=== PATIENT | female | born 1990 ===

== ENCOUNTER 2018-12-24 17:23 | Emergency (ER) | payer OTHER ==
[2018-12-24 17:29] VITALS: BMI 18.3
[2018-12-24 17:33] VITALS: RESP 18; O2SAT 100
[2018-12-24] MEDS ORDERED: Sodium Chloride 0.9% 1,000 ML IV ONE (17:59)
--- NOTE | 2018-12-24 18:11 | C.PDOC ---
History Of Present Illness 28-year-old female presents to the ED for evaluation of suprapubic pressure which began around 3 to 4 days ago. Patient is currently around four weeks . She is a . She denies vaginal bleeding, vomiting, diarrhea, fever, dysuria. Time Seen by Provider: 12/24/18 17:45 Chief Complaint (Nursing): Abdominal Pain History Per: Patient History/Exam Limitations: no limitations Onset/Duration Of Symptoms: Days (3-4) Current Symptoms Are (Timing): Still Present Location Of Pain/Discomfort: Suprapubic Quality Of Discomfort: Pressure Associated Symptoms: denies: Fever, Chills, Vomiting, Diarrhea, Urinary Symptoms Additional History Per: Patient Abnormal Vaginal Bleeding: No Past Medical History Reviewed: Historical Data, Nursing Documentation, Vital Signs Vital Signs: Last Vital Signs Temp 98.4 F 12/24/18 17:29 Pulse 75 12/24/18 17:29 Resp 18 12/24/18 17:29 BP 96/57 L 12/24/18 17:29 Pulse Ox 100 12/24/18 17:29 - Medical History PMH: No Chronic Diseases Surgical History: Cholecystectomy Family History: States: Unknown Family Hx - Social History Hx Alcohol Use: No Hx Substance Use: No Review Of Systems Constitutional: Negative for: Fever, Chills Gastrointestinal: Positive for: Abdominal Pain (suprapubic pressure ). Negative for: Vomiting, Diarrhea Genitourinary: Negative for: Dysuria Physical Exam - Physical Exam Appears: Non-toxic, No Acute Distress Skin: Normal Color, Warm, Dry Head: Atraumatic, Normacephalic Eye(s): bilateral: Normal Inspection Oral Mucosa: Moist Neck: Supple Chest: Symmetrical, No Deformity, No Tenderness Cardiovascular: Rhythm Regular, No Murmur Respiratory: Normal Breath Sounds, No Rales, No Rhonchi, No Wheezing Gastrointestinal/Abdominal: Soft, Tenderness (mild, suprapubic ), No Guarding, No Rebound, No Other (McBurney's point tenderness ) Back: No CVA Tenderness Extremity: Normal ROM, Capillary Refill (less than 2 seconds ) Neurological/Psych: Oriented x3, Normal Speech, Normal Cognition ED Course And Treatment - Laboratory Results Result Diagrams: 12/24/18 18:13 12/24/18 18:13 O2 Sat by Pulse Oximetry: 100 (on RA) Pulse Ox Interpretation: Normal - CT Scan/US ultrasound Other Rad Studies (CT/US): Read By Radiologist, Radiology Report Reviewed CT/US Interpretation: History. , vaginal bleeding. Comparison. None available. Findings. Uterus. Single live intrauterine gestation. CRL equivalent to 6 wks/3 days gestation. Gestational sac diameter equivalent to 6 wks/4 days gestation. Heart rate: 122.14 bpm. Uterus measures 10.28 x 6.82 x 7.74 cm. No mass. Cervix. Long and closed measuring 3.79 cm. No cervical abnormality seen. Right Ovary. Measures 4.38 x 2.5 x 3.97 cm. No mass. Normal flow. Corpus luteal cyst measures 2.66 x 2.34 x 2.42 cm. Left Ovary. Measures 3.03 x 2.33 x 2.63 cm. No mass. Normal flow. Free Fluid. Present. Other Findings. None. Impression. 1. Single live intrauterine gestation. 2. Free fluid in the cul-de-sac. 3. Right ovarian corpus luteal cyst. Progress Note: bloodwork, urinalysis, and ultrasound oredered and reviewed. On reassessment, patient is resting comfortably, showing no signs of distress and is stable for discharge. Patient is advised to f/u with her [employer]W MEMBER within 1-2 days for further evaluation. 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 SCHEDULED RETURN TO EMERGENCY ROOM IF YOUR SYMPTOMS WORSEN SEGUIR CON EL MAANA OB / TOMB MAKER HELPER MAESTRO SEGN LO HECHO VUELVA A LA JOSELO DE EMERGENCIA SI ANAHY SNTOMAS SE GARCIA IMPLICADO Prescriptions: Multivit/Folic Acid/I [ Plus] 1 tab PO DAILY #30 tab Instructions: Symptoms Forms: [facility] (Palestinian) Print Language: VIETNAMESE - Clinical Impression Clinical Impression: Normal IUP (intrauterine ) on ultrasound, - Scribe Statement The provider has reviewed the documentation as recorded by the Scribe (Rachelle Finley) Provider Attestation: All medical record entries made by the Scribe were at my direction and personally dictated by me. I have reviewed the chart and agree that the record accurately reflects my personal performance of the history, physical exam, medical decision making, and the department course for this patient. I have also personally directed, reviewed, and agree with the discharge instructions and disposition.
[2018-12-24] MEDS ORDERED: Sodium Chloride 0.9% 1,000 ML ONE (18:14)
[2018-12-24 18:24] LABS: BASO % 0.4 % (0.0-2.0); EOS % 0.7 % (0.0-4.0); HEMOGLOBIN 11.1 g/dL (11.0-16.0); LYMPH # 1.6 K/uL (1.0-4.3); LYMPH % 27.9 % (20.0-40.0); MEAN CELL VOLUME 87.9 fL (81.0-99.0); MEAN PLATELET VOLUME 8.5 fL (7.2-11.7); MONO # 0.5 K/uL (0.0-0.8); MONO % 8.1 % (0.0-10.0); NEUT # 3.7 K/uL (1.8-7.0); NEUT % 62.9 % (50.0-75.0); NRBC % 0.1 % (0.0-2.0); RBC 3.81 Mil/uL (3.80-5.20); RED CELL DISTRIBUTION WIDTH 13.2 % (11.5-14.5); WHITE BLOOD COUNT 5.9 K/uL (4.8-10.8)
[2018-12-24 18:26] LABS: SQUAMOUS EPITHIAL 3 /hpf (0-5); URINE BILIRUBIN NEGATIVE (NEGATIVE); URINE BLOOD NEGATIVE (NEGATIVE); URINE CLARITY Clear (Clear); URINE COLOR Yellow (YELLOW); URINE GLUCOSE (UA) NORMAL (Normal); URINE LEUKOCYTE ESTERASE TRACE Leu/uL (Negative); URINE PROTEIN NEGATIVE (NEGATIVE); URINE UROBILINOGEN NORMAL mg/dL (0.2-1.0)
[2018-12-24 18:34] LABS: ALB/GLOB RATIO 1.5 (1.0-2.1); ALBUMIN 4.2 g/dL (3.5-5.0); ALT/SGPT 13 U/L (9-52); AST/SGOT 20 U/L (14-36); BLOOD UREA NITROGEN 9 mg/dL (7-17); CALCIUM 8.8 mg/dl (8.6-10.4); GFR NON-AFRICAN AMERICAN > 60
[2018-12-24 20:44] VITALS: BP 105/65; PULSE 71; TEMP 98.5
--- NOTE | 2018-12-25 17:18 | US ---
Date of service: 12/24/2018 PROCEDURE: OB Pelvic Ultrasound HISTORY: , VAGINAL BLEEDING LMP: 11/17/2018 indicating gestation of 5 weeks 2 days. COMPARISON: None available. FINDINGS: UTERUS: Gestational sac: Single intrauterine gestation. Heart rate: 122 bpm. age (Ultrasound estimated): 6 weeks 3 days based on mean CRL measurement. Jami-gestational hemorrhage: None. Date of delivery (Ultrasound estimated) : 08/15/2019. Uterus measures 10.3 x 6.8 x 7.7 cm. Normal in size and appearance given dates. CERVIX: Measures 3.3 cm. Long and closed. No cervical abnormality seen. RIGHT OVARY: Measures 4.4 x 2.5 x 4.0 cm. No mass lesion. Normal flow. 2.7 cm corpus luteum cyst identified. LEFT OVARY: Measures 3.0 x 2.3 x 2.6 cm. No solid mass. Normal flow. FREE FLUID: None. OTHER FINDINGS: None. IMPRESSION: Single viable intrauterine gestation is identified with chronic age of 6 weeks 3 days which is generally concordant with menstrual dates noted above. No decidual hemorrhage identified. Right corpus luteum cyst noted. Clinical follow-up advised.
== END 2018-12-24 21:25 | disposition home or self-care (01) ==
LOC: C.ER 17:23
DX: O26.891 Other specified pregnancy related conditions, first trimester (principal); R10.9 Unspecified abdominal pain; Z3A.01 Less than 8 weeks gestation of pregnancy
CPT/HCPCS: 76805; 76817; 80053; 81001; 84702; 85025; 86850; 86900; 96360; 99285; J7030

== ENCOUNTER 2019-01-08 09:16 | Emergency (ER) | payer OTHER ==
[2019-01-08 09:17] VITALS: BMI 18.3
[2019-01-08 09:32] VITALS: O2SAT 98
[2019-01-08 10:01] LABS: BASO % 0.3 % (0.0-2.0); EOS # 0.1 K/uL (0.0-0.7); EOS % 1.1 % (0.0-4.0); HEMOGLOBIN 12.3 g/dL (11.0-16.0); LYMPH # 1.2 K/uL (1.0-4.3); LYMPH % 17.3 % (20.0-40.0); MEAN CELL VOLUME 87.5 fL (81.0-99.0); MEAN CORPUSCULAR HEMOGLOBIN 29.3 pg (27.0-31.0); MEAN CORPUSCULAR HGB CONC 33.5 g/dL (33.0-37.0); MEAN PLATELET VOLUME 8.4 fL (7.2-11.7); MONO # 0.6 K/uL (0.0-0.8); MONO % 7.9 % (0.0-10.0); NEUT # 5.2 K/uL (1.8-7.0); NEUT % 73.4 % (50.0-75.0); NRBC % 0.1 % (0.0-2.0); RBC 4.2 Mil/uL (3.80-5.20); RED CELL DISTRIBUTION WIDTH 12.8 % (11.5-14.5); WHITE BLOOD COUNT 7.1 K/uL (4.8-10.8)
[2019-01-08 10:02] LABS: HCG,QUALITATIVE URINE POSITIVE (NEGATIVE)
[2019-01-08 10:06] LABS: SQUAMOUS EPITHIAL 7 /hpf (0-5); URINE BACTERIA RARE (<OCC); URINE BILIRUBIN NEGATIVE (NEGATIVE); URINE BLOOD NEGATIVE (NEGATIVE); URINE CLARITY Hazy (Clear); URINE COLOR Yellow (YELLOW); URINE GLUCOSE (UA) NORMAL (Normal); URINE LEUKOCYTE ESTERASE 1+ Leu/uL (Negative); URINE PROTEIN NEGATIVE (NEGATIVE); URINE UROBILINOGEN NORMAL mg/dL (0.2-1.0)
[2019-01-08 10:22] LABS: ALB/GLOB RATIO 1.3 (1.0-2.1); ALBUMIN 4.5 g/dL (3.5-5.0); ALT/SGPT 17 U/L (9-52); AST/SGOT 28 U/L (14-36); BLOOD UREA NITROGEN 8 mg/dL (7-17); CALCIUM 9.3 mg/dl (8.6-10.4); GFR NON-AFRICAN AMERICAN > 60
--- NOTE | 2019-01-08 11:48 | US ---
Date of service: 01/08/2019 PROCEDURE: OB Pelvic Ultrasound HISTORY: r/o demise 11/17/2018 COMPARISON: None available. FINDINGS: UTERUS: Gestational sac: Sac diameter 32 mm equivalent to 8 weeks 1 day gestational age. [place]-rump length 17 mm equivalent to 8 weeks 1 day Heart rate: 165 bpm. age (Ultrasound estimated): 8 weeks 1 day Jami-gestational hemorrhage: None. Date of delivery (Ultrasound estimated) : 08/19/2019 3 mm yolk sac identified. Uterus measures 10.6 x 7.0 x 8.9 cm. Normal in size and appearance. CERVIX: Measures 3.3 cm. Long and closed. No cervical abnormality seen. RIGHT OVARY: Measures 3.1 x 2.6 x 2.7 cm. No mass lesion. Normal flow. Corpus luteum, 1.8 x 1.3 x 1.4 cm. LEFT OVARY: Not identified FREE FLUID: None. OTHER FINDINGS: None. IMPRESSION: Single live intrauterine gestation of approximately 8 weeks 1 day gestational age. No subchorionic hemorrhage. heart rate 165 beats per minute. Cervix long and closed. Left ovarian corpus luteum.
--- NOTE | 2019-01-08 11:55 | C.PDOC ---
History Of Present Illness 28 year old female currently 8 week gestation presents to the ED for evaluation of lack of movement for 3 days. She reports "feeling baby moving around" early on in but stopped 3 days ago which concerned her. Notes nausea and vomiting related to the . Denies vaginal bleeding, cramping, fever, chills, chest pain, abdominal pain, and any other associated symptoms. Time Seen by Provider: 01/08/19 09:39 Chief Complaint (Nursing): Medical Clearance History Per: Patient History/Exam Limitations: no limitations Onset/Duration Of Symptoms: Days Current Symptoms Are (Timing): Still Present Recent travel outside of the [place]: No Past Medical History Reviewed: Historical Data, Nursing Documentation, Vital Signs Vital Signs: Last Vital Signs Temp 98.5 F 01/08/19 09:26 Pulse 74 01/08/19 09:26 Resp 18 01/08/19 09:26 BP 112/74 01/08/19 09:26 Pulse Ox 98 01/08/19 09:26 Surgical History: Cholecystectomy Family History: States: Unknown Family Hx - Social History Hx Alcohol Use: No Hx Substance Use: No - Immunization History Hx Tetanus Toxoid Vaccination: No Hx Influenza Vaccination: No Hx Pneumococcal Vaccination: No Review Of Systems Except As Marked, All Systems Reviewed And Found Negative. Constitutional: Negative for: Fever, Chills Cardiovascular: Negative for: Chest Pain Gastrointestinal: Positive for: Nausea, Vomiting, Other (lack of movement. ). Negative for: Abdominal Pain (cramping. ) Genitourinary: Negative for: Vaginal Bleeding Physical Exam - Physical Exam Appears: Non-toxic, No Acute Distress Skin: Warm, Dry Head: Atraumatic, Normacephalic Eye(s): bilateral: Normal Inspection Oral Mucosa: Moist Neck: Normal ROM, No Supple Chest: Symmetrical, No Deformity Cardiovascular: Rhythm Regular, No Murmur Respiratory: Normal Breath Sounds, No Rales, No Rhonchi, No Wheezing Gastrointestinal/Abdominal: Normal Exam, Soft, No Tenderness Extremity: Bilateral: Atraumatic, Normal Color And Temperature, Normal ROM Neurological/Psych: Oriented x3, Normal Speech, Normal Cognition ED Course And Treatment - Laboratory Results Result Diagrams: 01/08/19 09:57 01/08/19 09:57 Lab Results: Total Bilirubin 0.5 mg/dL (0.2-1.3) 01/08/19 09:57 AST 28 U/L (14-36) 01/08/19 09:57 ALT 17 U/L (9-52) 01/08/19 09:57 Alkaline Phosphatase 47 U/L (38-126) 01/08/19 09:57 Total Protein 7.9 g/dL (6.3-8.3) 01/08/19 09:57 Albumin 4.5 g/dL (3.5-5.0) 01/08/19 09:57 Globulin 3.4 gm/dL (2.2-3.9) 01/08/19 09:57 Albumin/Globulin Ratio 1.3 (1.0-2.1) 01/08/19 09:57 Urine Color Yellow (YELLOW) 01/08/19 09:48 Urine Clarity Hazy (Clear) 01/08/19 09:48 Urine pH 6.0 (5.0-8.0) 01/08/19 09:48 Ur Specific [place] 1.021 (1.003-1.030) 01/08/19 09:48 Urine Protein Negative mg/dL (NEGATIVE) 01/08/19 09:48 Urine Glucose (UA) Normal mg/dL (Normal) 01/08/19 09:48 Urine Ketones Negative mg/dL (NEGATIVE) 01/08/19 09:48 Urine Blood Negative (NEGATIVE) 01/08/19 09:48 Urine Nitrate Negative (NEGATIVE) 01/08/19 09:48 Urine Bilirubin Negative (NEGATIVE) 01/08/19 09:48 Urine Urobilinogen Normal mg/dL (0.2-1.0) 01/08/19 09:48 Ur Leukocyte Esterase 1+ Judy/uL (Negative) H 01/08/19 09:48 Urine WBC (Auto) 2 /hpf (0-5) 01/08/19 09:48 Urine RBC (Auto) 3 /hpf (0-3) 01/08/19 09:48 Ur Squamous Epith Cells 7 /hpf (0-5) H 01/08/19 09:48 Urine Bacteria Rare (<OCC) 01/08/19 09:48 Urine HCG, Qual Positive (NEGATIVE) 01/08/19 09:48 Beta HCG, Quant 478398.00 mIU/ML 01/08/19 09:57 Urine HCG, Qual Positive (NEGATIVE) 01/08/19 09:48 Urine POC: Positive O2 Sat by Pulse Oximetry: 98 (RA) Pulse Ox Interpretation: Normal - CT Scan/US tranvaginal Other Rad Studies (CT/US): Read By Radiologist, Radiology Report Reviewed CT/US Interpretation: Accession No. : [id number]. Patient Name / ID : NELSON YEPEZ / [id number]. Exam Date : 01/08/2019 10:39:48 ( Approved ). Study Comment : Sex / Age : F / 28Y. Creator : William Casillas MD. Dictator : William Casillas MD. Core Stacker : Universal Winding Machine Operator : William Casillas MD. Approver2 : Report Date : 01/08/2019 11:44:35. My Comment : . Date of service: 01/08/2019. PROCEDURE: OB Pelvic Ultrasound. HISTORY: r/o demise. 11/17/2018. COMPARISON: None available. FINDINGS: UTERUS: Gestational sac: Sac diameter 32 mm equivalent to 8 weeks 1 day gestational age. [place]-rump length 17 mm equivalent to 8 weeks 1 day. Heart rate: 165 bpm. age (Ultrasound estimated): 8 weeks 1 day. Jami-gestational hemorrhage: None. Date of delivery (Ultrasound estimated) : 08/19/2019. 3 mm yolk sac identified. Uterus measures 10.6 x 7.0 x 8.9 cm. Normal in size and appearance. CERVIX: Measures 3.3 cm. Long and closed. No cervical abnormality seen. RIGHT OVARY: Measures 3.1 x 2.6 x 2.7 cm. No mass lesion. Normal flow. Corpus luteum, 1.8 x 1.3 x 1.4 cm. LEFT OVARY: Not identified. FREE FLUID: None. OTHER FINDINGS: None. IMPRESSION: Single live intrauterine gestation of approximately 8 weeks 1 day gestational age. No subchorionic hemorrhage. heart rate 165 beats per minute. Cervix long and closed. Left ovarian corpus luteum. Medical Decision Making Medical Decision Making: Initial plan: -labs -Transvaginal US -Urinalysis Progress/Update: US and Labs discussed with the pt- viable Patient stable for discharge home. Prescribed Zofran. Advised to follow up within 1-2 days with [facility] LO[facility] at [facility] Disposition Counseled Patient/Family Regarding: Studies Performed, Diagnosis, Need For Followup, Rx Given - Disposition [facility] [Outside] Disposition: HOME/ ROUTINE Disposition Time: 11:54 Condition: STABLE Additional Instructions: MARLENI DAMON, thank you for letting us take care of you today. Your provider was Cheryl Chin MD/Colin Bethea PA-C and you were treated for being 8 WEEKS . The emergency medical care you received today was directed at your acute symptoms. If you were prescribed any medication, please fill it and take as directed. It may take several days for your symptoms to resolve. Return to the Emergency Department if your symptoms worsen, do not improve, or if you have any other problems. Please contact your doctor or call one of the physicians/clinics you have been referred to that are listed on the Patient Visit Information form that is i ncluded in your discharge packet. Bring any paperwork you were given at discharge with you along with any medications you are taking to your follow up visit. Our treatment cannot replace ongoing medical care by a primary care provider outside of the emergency department. Thank you for allowing the [facility] team to be part of your care today. Prescriptions: Ondansetron ODT [Zofran ODT] 4 mg PO TID PRN #30 odt PRN Reason: Nausea/Vomiting Instructions: - The Second Month, - The Third Month Forms: [employer] (Kyrgyz) - Clinical Impression Clinical Impression: Normal IUP (intrauterine ) on ultrasound - PA / MANAGER PROCESS IMPROVEMENT / Resident Statement MD/DO has reviewed & agrees with the documentation as recorded. - Scribe Statement The provider has reviewed the documentation as recorded by the Scribe (Moriah Kimball) All medical record entries made by the Scribe were at my direction and personally dictated by me. I have reviewed the chart and agree that the record accurately reflects my personal performance of the history, physical exam, medical decision making, and the department course for this patient. I have also personally directed, reviewed, and agree with the discharge instructions and disposition.
[2019-01-08 12:06] VITALS: BP 100/66; PULSE 78; RESP 20; TEMP 98.6
== END 2019-01-08 12:07 | disposition home or self-care (01) ==
LOC: C.ER 09:16
DX: Z36.89 Encounter for other specified antenatal screening (principal)